=== PATIENT | male | born 1935 | race Caucasian/White ===

== ENCOUNTER 2016-09-24 06:05 | Outpatient (CLI) | payer MEDICARE, OTHER ==
[~2016-09-24] VITALS: Ht 177.8 cm; Wt 90.9 kg
--- NOTE | ~2016-09-24 | CATH ---
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 Patent 2 previous stents in LAD. New 95% mid stenosis in LAD. 20-30% stenosis in Cx. Diagnostic Recommendations PCI to LAD. Interventional Findings and Conclusion Successful NICHOLAS to prox to mid LAD> Interventional Recommendations DAPT x 1 year at least. Risk factor modification. Procedure Description The patient was brought to the diagnostic cardiac catheterization-EP laboratory in the fasting, non-sedated state. Informed consent was obtained in the written and verbal form after the risks and benefits were explained. The patient had no further questions and agreed to proceed. The planned puncture-incision site(s) were shaved and prepped with ChloraPrep and draped in the usual sterile manner. Conscious sedation, supplemental oxygen, and pain control medications were delivered by a registered nurse under physician guidance. Surface ECG rhythm, blood pressure measurement, and pulse oximetry were monitored throughout the procedure. Arterial access. The access site was infiltrated with lidocaine. The vessel was entered with the Seldinger technique. A sheath was advanced into the vessel and used for catheter placement. Selective left coronary angiography. A catheter was advanced into the left coronary vessel ostium under Fluoroscopic guidance. Contrast was injected by hand. Images were obtained in multiple projections. Selective right coronary angiography. A catheter was advanced into the right coronary vessel ostium under fluoroscopic guidance. Contrast was injected by hand. Images were obtained in multiple projections. Left heart catheterization. A catheter was advanced across the aortic valve to the left ventricle under fluoroscopic guidance. Resting hemodynamics were obtained. Stent Placement: A guiding catheter was used to intubate the vessel. A 0.14 wire was used to cross the lesion. A Drug Eluting Stent was placed. Post placement angiograms were performed. Arterial artery hemostasis was achieved. The patient was transferred to a regular nursing floor via cart accompanied by a nurse. The patient left the laboratory in stable condition. Diagnostic Cath Status: Elective Interventional Cath Status: Urgent Procedure Procedure Type Diagnostic procedure:Angiography:, Coronary Angios, [facility] PCI procedure:Drug Eluting Coronary Stent:, LAD Indications: Chest pain. The procedure was explained in detail to the patient. Risks, complications and alternative treatments were reviewed. Written consent was obtained. Medications Reviewed with Patient prior to Procedure. Angiographic Findings Dominance: Right Cardiac Arteries and Lesion Findings LMCA: Normal (0% Stenosis).Patent. LAD: Abnormal.Patent previous 2 stents. Lesion on Mid LAD: Mid subsection.95% stenosis 32 mm length reduced to 0%. Pre procedure ZAKIYA III flow was noted. Post Procedure ZAKIYA III flow was present. The guidewire cross was successful.A good run off was present.The lesion was diagnosed as a moderate risk lesion. Devices used - Whisper Wire .014 x 190. Number of passes: 1. - Emerge Balloon 2.5 x 15. 1 inflation(s) to a max pressure of: 14 hoang. - Promus Premier 3.0 x 32 Stent. 1 inflation(s) to a max pressure of: 14 hoang. - NC Emerge Balloon 3.5 x 15. 3 inflation(s) to a max pressure of: 18 hoang. Lesion on 1st Diag: Proximal subsection.80% stenosis . LCx: Abnormal. Lesion on Prox CX: 30% stenosis . Lesion on 1st Ob Rosa: Proximal subsection.20% stenosis . RCA: Abnormal.PDA chronically occluded. Collaterals from LAD. Lesion on Mid RCA: Mid subsection.50% stenosis . Lesion on 1st RPL: Proximal subsection.20% stenosis . Coronary Tree Procedure Data Procedure Date Date: 09/24/2016Start: 09:35 AMEnd: 10:42 AM Entry Locations - Retrograde Percutaneous access was performed through the Right Radial artery (Primary location). A 6 Fr sheath was inserted. Hemostasis was successfully obtained using an R band. Closure Comments: 14 of air delivered by [employer]. . Procedure Medications Order and Administration + + + +--------+ !Time !Medication !Dosage !Route ! + + + +--------+ !09/24/2016 09:40 AM !Radial Verapamil !1.5 mg !I.A. ! + + + +--------+ !09/24/2016 09:41 AM !Radial Nitroglycerin !200 mcg !I.A. ! + + + +--------+ !09/24/2016 09:41 AM !Radial Heparin (ACC_3) !5000 units !I.A. ! + + + +--------+ !09/24/2016 09:49 AM !Heparin (ACC_3) !3000 units ! ! + + + +--------+ !09/24/2016 09:53 AM !Integrilin (ACC_7) !20 mg ! ! + + + +--------+ !09/24/2016 10:19 AM !Brilinta (Ticagrelor) (ACC_20) !180 mg ! ! + + + +--------+ !09/24/2016 09:27 AM !Fentanyl !50 mcg !I.V. ! + + + +--------+ Devices Used - A6 Fr. BS JR 4 Diag. Catheterwas used for:Right coronary angiography. - A6 Fr. BS JL 3.5 Diag. Catheterwas used for:Left coronary angiography. - A6 Fr. XBLAD 3.5 Guide Catheterwas used for:LAD Intervention. Contrast Material - Isovue 21505 ml Fluoroscopy Time: Diagnostic: 12:14 minutes. Total: 12:14 minutes. Fluoroscopy Dose: Diagnostic: 1457 mGy. Total: 1457 mGy. Estimated Blood Loss: 25 ml. Additional [facility] PCI Information PCI Indication:PCI for high risk Non-STEMI or unstable angina. Medical History Allergies - Penicillin. Risk Factors The patient risk factors include:prior PCI on 08/02/2011;treated hypercholesterolemia, treated hypertension and insulin-treated diabetes mellitus. Admission Data Admission Date: 09/24/2016 Admission Time: 06:05 AM Admit Source: Other Insurance Payors: Medicare. Admission Medications + +------+------+ + + + + !Medication !Dosage!Times !Last !Last !Administered !Comments ! ! ! !Per !Delivery !Delivery ! ! ! ! ! !Day !Date !Time ! ! ! + +------+------+ + + + + !Aspirin ! ! ! ! ! ! ! !(any) ! ! ! ! ! ! ! + +------+------+ + + + + !Statin (any)! ! ! ! ! ! ! + +------+------+ + + + + !HELLEN ! ! ! ! ! ! ! !Inhibitor ! ! ! ! ! ! ! !(any) ! ! ! ! ! ! ! + +------+------+ + + + + !Beta Raman! ! ! ! ! ! ! !(any) ! ! ! ! ! ! ! + +------+------+ + + + + Clinical Evaluation Leading to Procedure - The patient's CAD presentation was assessed as: Unstable angina. 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 Anti-anginal medications were prescribed during the past two weeks. The medication is: Beta Blockers. Snapshots Hemodynamics Condition: Rest O2 Consumption: Estimated: 209.44Heart Rate: 33 bpm Pressures (mmHg) +-----+ + !Site !Pressure ! +-----+ + !AO !124/64 (87) ! +-----+ + !LV !122/7 ,14 ! +-----+ + !LV !123/4 ,13 ! +-----+ + !AO !126/64 (87) ! +-----+ + !LV !118/6 ,14 ! +-----+ + Valve Gradients and Areas + +---------+---------+---------+ +---------+ + !Valve !Peak !Mean !Area !Index !Flow !Source ! + +---------+---------+---------+ +---------+ + !Aortic !0 !0 ! ! ! ! ! + +---------+---------+---------+ +---------+ + !Aortic !0 !0 ! ! ! ! ! + +---------+---------+---------+ +---------+ + Shunts Oxygen Values O2 Capacity 165.92 O2 Consumption 209.44 Discharge Data Discharge Date: 09/25/2016 Hospital Status: Outpatient Signatures dtt: Hyun Greene dtd: 09/24/16 0935 Physician Self Edit
[~2016-09-24 06:05] MED LIST: ASPIRIN (CHILDR81 MG PO; FLOMAX0.4 MG PO; LASIX20 MG PO; LEVEMIR FL100 UNIT/1 SUB-Q; LEVOTHROID (S100 MCG PO; LEXAPRO10 MG PO; LIPITOR40 MG PO; LOPRESSOR25 MG PO; NITROSTAT0.4 MG SL; PHOS-NAK PO; PROBIOTIC1 EAC1 PO; RANEXA1000 MG PO; VASOTEC2.5 MG PO; ZYLOPRIM300 MG PO
[2016-09-24 06:41] LABS: BASOPHIL % 0.3 %; EOSINOPHIL # 0.1 K/uL (0.0-0.5); EOSINOPHIL % 1.5 %; HEMATOCRIT 41.9 % (33.0-50.0); HEMOGLOBIN 14.2 g/dL (11.0-16.0); IMMATURE GRANULOCYTE % 0.5 %; LYMPHOCYTE # 2.2 K/uL (0.8-4.0); LYMPHOCYTE % 29.9 %; MCH 31.3 pg (27.0-34.0); MCHC 33.9 gm/dL (32.0-36.5); MCV 92.5 fl (83.0-98.0); MONOCYTE # 0.4 K/uL (0.0-1.0); MPV 9.3 fl (9.4-12.4); NEUTROPHIL # (ANC) 4.6 K/uL (1.4-9.0); NEUTROPHIL % 61.8 %; NRBC % 0 /100WBC (0-0.00); PLATELET COUNT 155 K/uL (150-450); RDW-CV 13.4 % (11.9-14.6); WBC 7.4 K/uL (4.0-11.0)
[2016-09-24 06:42] LABS: RBC 4.53 M/uL (3.50-5.50)
[2016-09-24 06:52] LABS: INR - (THERAPEUTIC) 0.98 (0.92-1.07); PROTIME 10.3 SECONDS (9.8-11.4); PTT 27 SECONDS (25-32)
[2016-09-24 07:02] LABS: ALBUMIN 3.7 gm/dL (3.5-5.0); ANION GAP 10.3 (10.0-19.0); CALCIUM 8.1 mg/dL (8.5-10.5); CREATININE 1.6 mg/dL (0.6-1.3); POTASSIUM 4.3 mMol/L (3.7-5.1); TOTAL BILIRUBIN 0.6 mg/dL (0.0-1.5); TOTAL PROTEIN 6.7 g/dL (6.0-8.4)
[2016-09-24 11:50] LABS: CPK 62 IU/L (35-332)
--- NOTE | 2016-09-24 15:20 | NUR ---
Significant Event: pt had cath today, stent lad, went to pacu, had some chest pain, so enzymes being done q6h and ekgs. No c/o pain on pcu. Bicarb infusing for renals, off at 1640. Enzymes neg. SBP elevated norvasc today. 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 Brillinta started. Follow up:
[2016-09-24 17:32] LABS: CPK 60 IU/L (35-332)
--- NOTE | 2016-09-25 04:06 | NUR ---
Significant Event: Patient A/Ox3. VSS on RA. R) radial site is soft, small ecchymotic area above that was present for day shift also. No complaints of pain this shift. Accucheck was 224 at HS so received SS. Follow up: Home today
[2016-09-25 05:57] LABS: ALBUMIN 3.2 gm/dL (3.5-5.0); CALCIUM 8.2 mg/dL (8.5-10.5); CREATININE 1.5 mg/dL (0.6-1.3); TOTAL BILIRUBIN 0.7 mg/dL (0.0-1.5)
[2016-09-25 05:58] LABS: ANION GAP 11.9 (10.0-19.0); POTASSIUM 4.9 mMol/L (3.7-5.1)
[2016-09-25] MEDS ORDERED: BRILINTA90 MG PO (10:18)
[2016-09-25] MEDS ORDERED: NORVASC2.5 MG PO (10:28)
== END 2016-09-25 11:10 | disposition disaster alternative care site (69) ==
LOC: GCAT 06:05 → GPCU 06:05 → GCAT 14:00
PROVIDERS: Internal Medicine Cardiovascular Disease
PROC: B2111ZZ Fluoroscopy of Multiple Coronary Arteries using Low Osmolar Contrast (ICD-10-PCS; principal; 2016-09-24)
PROC: 027034Z Dilation of Coronary Artery, One Artery with Drug-eluting Intraluminal Device, Percutaneous Approach (ICD-10-PCS; principal; 2016-09-24)
PROC: 4A023N7 Measurement of Cardiac Sampling and Pressure, Left Heart, Percutaneous Approach (ICD-10-PCS; principal; 2016-09-24)
DX: I25.110 Atherosclerotic heart disease of native coronary artery with unstable angina pectoris (principal); I12.9 Hypertensive chronic kidney disease with stage 1 through stage 4 chronic kidney disease, or unspecified chronic kidney disease; E11.22 Type 2 diabetes mellitus with diabetic chronic kidney disease; N18.9 Chronic kidney disease, unspecified; E78.5 Hyperlipidemia, unspecified; I42.9 Cardiomyopathy, unspecified; E03.9 Hypothyroidism, unspecified; Z95.5 Presence of coronary angioplasty implant and graft; Z79.82 Long term (current) use of aspirin; Z79.4 Long term (current) use of insulin; Z79.899 Other long term (current) drug therapy
CPT/HCPCS: C1725; C1769; C1874; C1887; C1894; C9600; J1327; J1644; J2250; J3010; J7030; J7060

== ENCOUNTER → 2016-11-09 | Outpatient (CLI) | payer MEDICARE, OTHER ==
[~2016-11-09] MED LIST changes: +BRILINTA90 MG PO; +NORVASC2.5 MG PO
[2016-11-09 12:32] LABS: HEMATOCRIT 42.2 % (33.0-50.0); HEMOGLOBIN 14.3 g/dL (11.0-16.0); MCH 31.8 pg (27.0-34.0); MCHC 33.9 gm/dL (32.0-36.5); MPV 9.5 fl (9.4-12.4); RBC 4.49 M/uL (3.50-5.50); RDW-CV 14.1 % (11.9-14.6)
[2016-11-09 12:47] LABS: ALBUMIN 3.9 gm/dL (3.5-5.0); ANION GAP 13.4 (10.0-19.0); CALCIUM 9.1 mg/dL (8.5-10.5); CREATININE 1.6 mg/dL (0.6-1.3); MAGNESIUM 2.1 mg/dL (1.8-2.6); PHOSPHORUS 3.3 mg/dL (2.5-4.9); POTASSIUM 4.4 mMol/L (3.7-5.1); TOTAL BILIRUBIN 0.7 mg/dL (0.0-1.5)
== END ==
LOC: LGSMG 12:18
PROVIDERS: Internal Medicine Nephrology
DX: I25.10 Atherosclerotic heart disease of native coronary artery without angina pectoris (principal); E79.0 Hyperuricemia without signs of inflammatory arthritis and tophaceous disease; H81.10 Benign paroxysmal vertigo, unspecified ear; I42.9 Cardiomyopathy, unspecified; J44.9 Chronic obstructive pulmonary disease, unspecified; E78.5 Hyperlipidemia, unspecified; E83.42 Hypomagnesemia; E03.9 Hypothyroidism, unspecified; K51.90 Ulcerative colitis, unspecified, without complications; I12.9 Hypertensive chronic kidney disease with stage 1 through stage 4 chronic kidney disease, or unspecified chronic kidney disease; N18.3 Chronic kidney disease, stage 3 (moderate); E11.22 Type 2 diabetes mellitus with diabetic chronic kidney disease; Z92.29 Personal history of other drug therapy